=== PATIENT | male | born 1985 | race Caucasian/White ===

== ENCOUNTER 2017-04-05 18:58 | Emergency (ER) | payer MEDICAID ==
[~2017-04-05] VITALS: Ht 172.7 cm; Wt 136.0 kg
[2017-04-05] MEDS ORDERED: HYDR12.529 PO (19:03)
[2017-04-05] MEDS ORDERED: IBUPROFEN 800MG TABLET PO ONE (20:30)
[2017-04-05] MEDS ORDERED: HYDROCODONE/ACETAMINOPHEN 10/325MG TABLET PO ONE (23:30)
[2017-04-06 01:25] VITALS: BP 159/107
== END 2017-04-06 01:38 | disposition home or self-care (01) ==
LOC: ER 19:40
DX: S13.4XXA Sprain of ligaments of cervical spine, initial encounter (principal); M79.674 Pain in right toe(s); I10 Essential (primary) hypertension; Z88.0 Allergy status to penicillin; F12.10 Cannabis abuse, uncomplicated; V03.00XA Pedestrian on foot injured in collision with car, pick-up truck or van in nontraffic accident, initial encounter; Y93.89 Activity, other specified; Y99.8 Other external cause status; Y92.410 Unspecified street and highway as the place of occurrence of the external cause
CPT/HCPCS: 72125; 73630; 99284; Z7610

== ENCOUNTER 2018-11-05 07:08 | Emergency (ER) | payer MEDICAID, OTHER ==
[~2018-11-05] VITALS: Ht 177.8 cm; Wt 120.0 kg
[~2018-11-05 07:08] MED LIST: HYDR12.529 PO
[2018-11-05] MEDS ORDERED: KETOROLAC 60MG/2ML VIAL IM ONE (08:00)
[2018-11-05 08:45] VITALS: BP 137/89
== END 2018-11-05 08:48 | disposition home or self-care (01) ==
LOC: ER 07:08
DX: S40.012A Contusion of left shoulder, initial encounter (principal); M54.5 Low back pain; F12.10 Cannabis abuse, uncomplicated; I10 Essential (primary) hypertension; W18.39XA Other fall on same level, initial encounter; Y93.89 Activity, other specified; Y92.89 Other specified places as the place of occurrence of the external cause; Y99.8 Other external cause status; Z88.0 Allergy status to penicillin
CPT/HCPCS: 72100; 73030; 96372; 99283; J1885